=== PATIENT | male | born 1985 | race Caucasian/White ===

== ENCOUNTER 2017-06-09 19:34 | Emergency (ER) | payer BC ==
[~2017-06-09] VITALS: Ht 172.7 cm; Wt 125.4 kg
[~2017-06-09 19:34] MED LIST: CLEOCIN300 MG PO; KEFLEX500 MG PO
[2017-06-09 20:38] LABS: ADD MIUA? NO; BILIRUBIN NEGATIVE; BLOOD NEGATIVE; COLOR YELLOW ((YELLOW)); GLUCOSE (STRIP) NEGATIVE; KETONES NEGATIVE; LEUKOCYTES NEGATIVE; NITRITE NEGATIVE; PROTEIN (STRIP) NEGATIVE; SPECIFIC GRAVITY 1.026 (1.000-1.030); UCUL ADDED? NO
[2017-06-09 20:49] LABS: HEMATOCRIT 46.1 % (38.0-50.0); MCH 30.3 PG (29.0-34.0); MCV 84.3 FL (86-99); MEAN PLAT.VOLUME 9.4 uM^3 (9.0-12.4); PLATELET COUNT 214 K/uL (156-360); RBC DIS.WIDTH-CV 11.6 % (11.8-14.6); RBC DIS.WIDTH-SD 35.1 % (39-53); RED BLOOD COUNT 5.47 M/uL (4.00-5.50); WHITE BLOOD COUNT 7.7 K/uL (4.1-10.2)
[2017-06-09 21:02] LABS: CHLORIDE 101 mEq/L (99-109); POTASSIUM 3.6 mEq/L (3.7-5.4); SODIUM 137 mEq/L (136-147)
[2017-06-09 21:04] LABS: GLUCOSE 108 mg/dL (70-99)
[2017-06-09 21:05] LABS: ANION GAP 12 MEQ/L (2-14)
[2017-06-09 21:06] LABS: TOTAL BILIRUBIN 1.6 mg/dL (0.0-1.0)
[2017-06-09 21:08] LABS: ALKALINE PHOSPHATASE 53 IU/L (3-129); GFR ESTIMATE (CALCULATED) > 59 mL/min/ (58.99-99999)
[2017-06-09 21:09] LABS: UREA NITROGEN (BUN) 15 mg/dL (9-23)
[2017-06-09 21:11] LABS: LIPASE 24 U/L (1.0-51.0)
[2017-06-09] MEDS ORDERED: MOTRIN600 MG PO (22:49)
[2017-06-09] MEDS ORDERED: BENTYL10 MG PO (22:49)
[2017-06-10 00:04] VITALS: BP 140/78
== END 2017-06-10 00:05 | disposition home or self-care (01) ==
LOC: RME 19:34 → EME 19:34 → RME 06-10 00:05
DX: K80.50 Calculus of bile duct without cholangitis or cholecystitis without obstruction (principal); K76.0 Fatty (change of) liver, not elsewhere classified; I10 Essential (primary) hypertension; Z88.0 Allergy status to penicillin; Z88.2 Allergy status to sulfonamides
CPT/HCPCS: 76705; 80053; 81003; 83690; 85027; 99281; 99284; J1885